=== PATIENT | female | born 1935 | race Caucasian/White ===

== ENCOUNTER 2023-08-30 13:44 | Outpatient (CLI) | payer MEDICARE | END 2023-08-30 13:45 | disposition home or self-care (01) | LOC: CSHMAMMO 13:44 | PROVIDERS: ATTEND Family Medicine | DX: Z12.31 Encounter for screening mammogram for malignant neoplasm of breast (principal); Z80.3 Family history of malignant neoplasm of breast | CPT/HCPCS: 77063; 77067 ==

== ENCOUNTER 2025-05-16 09:19 | Outpatient (CLI) | payer MEDICARE | END 2025-05-16 09:20 | disposition home or self-care (01) | LOC: CSHMAMMO 09:19 | PROVIDERS: ATTEND Student in an Organized Health Care Education/Training Program | DX: Z78.0 Asymptomatic menopausal state (principal); M81.0 Age-related osteoporosis without current pathological fracture | CPT/HCPCS: 77080 ==

== ENCOUNTER 2025-07-10 17:40 | Emergency (ER) | payer MEDICARE ==
[2025-07-10 19:27] LABS: ALT (SGPT) 15 U/L (Less than 34); AST (SGOT) 21 U/L (11-34); Albumin 3.3 g/dL (3.1-4.5); Alkaline Phosphatase 48 U/L (40-110); Anion Gap 11 mmol/L (10-20); BUN (Urea Nitrogen) 26 mg/dL (9.8-20.1); Bilirubin, Total 1.0 mg/dL (0.3-1.2); Calc. Creatinine Clearance 0 mL/min (70-130); Calcium 9.0 mg/dL (7.8-10.44); Carbon Dioxide 23 mmol/L (23-31); Chloride 108 mmol/L (98-107); Globulin 2.5 g/dL (2.4-3.5); Glucose 100 mg/dL (83-110); Potassium 4.9 mmol/L (3.5-5.1); Sodium 137 mmol/L (136-145)
[2025-07-10 19:33] LABS: Troponin I 0.030 ng/mL (< 0.028)
[2025-07-10 19:58] LABS: #Basophils 0.06 10x3/uL (0.0-0.2); #Eosinophils 0.03 10x3/uL (0.0-0.5); #Monocytes 1.09 10x3/uL (0.0-1.1); #Neutrophils 6.23 10x3/uL (1.5-8.4); %Basophils 0.7 % (0.0-2.0); %Eosinophils 0.3 % (0.0-6.0); %Lymphocytes 17.7 % (18.0-47.0); %Monocytes 12.0 % (0.0-10.0); %Neutrophils 68.9 % (40.0-75.0); Hematocrit 36.8 % (34.9-44.5); Hemoglobin 12.1 g/dL (12.0-15.5); Mean Corpuscular Hemoglobin 28.8 pg (27.0-33.0); Mean Corpuscular Volume 87.6 fL (81.6-98.3); Platelet Count 202 10x3/uL (150-450); Red Blood Cell (RBC) Count 4.20 10x6/uL (3.90-5.03); White Blood Cell (WBC) Count 9.05 10x3/uL (3.5-10.5)
[2025-07-10] MEDS ORDERED: Oseltamivir 75 MG CAP ONE (20:35)
[2025-07-10] MEDS ORDERED: Oseltamivir 75 MG CAP PO SCH (21:00)
== END 2025-07-10 20:34 | disposition home or self-care (01) ==
LOC: CSHERS 17:40
DX: J11.1 Influenza due to unidentified influenza virus with other respiratory manifestations (principal); R79.89 Other specified abnormal findings of blood chemistry; I11.0 Hypertensive heart disease with heart failure; I50.9 Heart failure, unspecified
CPT/HCPCS: 71045; 80053; 84484; 85025; 93005